=== PATIENT | female | born 1980 | race Caucasian/White ===

== ENCOUNTER 2018-05-21 09:39 | Emergency (ER) | payer OTHER ==
[2018-05-21 10:06] VITALS: BP 114/69; PULSE 78; TEMP 98.5; BMI 33.3
[2018-05-21] MEDS ORDERED: IBUPROFEN 600 MG TABLET (FP) PO ONE ×2 (11:02→11:04)
--- NOTE | 2018-05-21 11:07 | PDOC ---
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 Pt is right hand dominant. no fever no chills no pmhx. Past History - Past Medical History Allergies/Adverse Reactions: Allergies Allergy/AdvReac Type Severity Reaction Status Date / Time No Known Allergies Allergy Verified 05/21/18 10:02 Home Medications: Ambulatory Orders Ibuprofen 600 mg PO TID PRN #20 tablet 05/21/18 COPD: No - Suicide/Smoking/Psychosocial Hx Smoking History: Never smoked Hx Alcohol Use: No Drug/Substance Use Hx: No Review of Systems - Review of Systems Able to Perform ROS?: Yes Is the patient limited Korean proficient: No Constitutional: No: Symptoms Reported HEENTM: No: Symptoms Reported Respiratory: No: Symptoms reported Cardiac (ROS): No: Symptoms Reported ABD/GI: No: Symptoms Reported : No: Symptoms Reported Musculoskeletal: Yes: Symptoms Reported *Physical Exam - Vital Signs Last Vital Signs Temp Pulse Resp BP Pulse Ox 98.5 F 78 18 114/69 99 05/21/18 10:02 05/21/18 10:02 05/21/18 10:02 05/21/18 10:02 05/21/18 10:02 - Physical Exam General Appearance: Yes: Nourished, Appropriately Dressed HEENT: positive: EOMI, MADYSON Neck: negative: Tender, Decreased range of motion, Tender lateral Respiratory/Chest: positive: Lungs Clear, Normal Breath Sounds Cardiovascular: positive: Regular Rhythm, Regular Rate Extremity: positive: Normal Capillary Refill, Normal Inspection, Swelling ( fingers mildly swollen , nv intact FROM however pain with full extension of the fingers , ttp at the wrist crease, positive phalen sign ) Integumentary: positive: Normal Color, Dry, Warm Neurologic: positive: Fully Oriented, Alert, Normal Mood/Affect, Normal Response , Motor Strength 5/5 ED Treatment Course - RADIOLOGY Radiology Studies Ordered: Category Date Time Status WRIST W/HAND-LEFT* [RAD] Stat Radiology 11/02/18 11:02 Ordered Medical Decision Making - Medical Decision Making 05/21/18 11:04 cc: left wrist pain/hand, fingers for 3 days worse at night,. 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 all questions asked and answered. *DC/Admit/Observation/Transfer Diagnosis at time of Disposition: Carpal tunnel syndrome of left wrist - Discharge Dispostion Disposition: HOME Condition at time of disposition: Good - Prescriptions Prescriptions: Ibuprofen 600 mg PO TID PRN #20 tablet PRN Reason: pain - Referrals Referrals: Germán Rodriguez MD [Primary Care Provider] - Mulugeta Antunez DO [Staff Physician] - - Patient Instructions Printed Discharge Instructions: DI for Carpal Tunnel Syndrome Additional Instructions: follow with the orthopedist call today to set up appointment for next week use the splint at all times except to bathe wear at nigh time take ibuprofen (over the counter advil, motrin or ibuprofen) as directed for pain - Post Discharge Activity
== END 2018-05-21 11:31 | disposition home or self-care (01) ==
LOC: JERFT 09:39 → JER 09:39 → JERFT 11:31
DX: G56.02 Carpal tunnel syndrome, left upper limb (principal)
CPT/HCPCS: 73110-TC-LR-FY; 73130-TC-LR-FY; 99281-25

== ENCOUNTER 2018-12-11 15:55 | Emergency (ER) | payer OTHER | END 2018-12-11 16:58 | disposition home or self-care (01) | LOC: JERFT 15:55 ==

== ENCOUNTER 2019-02-07 12:34 | Emergency (ER) | payer OTHER ==
--- NOTE | 2019-02-07 12:38 | PDOC ---
Rapid Medical Evaluation Medical Evaluation: Allergies Allergy/AdvReac Type Severity Reaction Status Date / Time No Known Allergies Allergy Verified 12/11/18 16:50 02/07/19 12:37 I have performed a brief in-person evaluation of this patient. The patient presents with a chief complaint of: atraumatic right wrist pain Pertinent physical exam findings: No deformity. Full passive ROM. I have ordered the following: xray, motrin The patient will proceed to the ED for further evaluation. Discharge Disposition - Diagnosis Wrist pain, right - Referrals - Patient Instructions - Post Discharge Activity
[2019-02-07 12:42] VITALS: BP 121/86; PULSE 80; TEMP 98.1; BMI 32.5
--- NOTE | 2019-02-07 13:26 | PDOC ---
History of Present Illness - General Chief Complaint: Pain, Acute Stated Complaint: PAIN TO RT WRIST Time Seen by Provider: 02/07/19 12:39 - History of Present Illness Initial Comments: 02/07/19 13:21 38-year-old female without comorbidities presents for evaluation of atraumatic right wrist pain times one day Past History - Past Medical History Allergies/Adverse Reactions: Allergies Allergy/AdvReac Type Severity Reaction Status Date / Time No Known Allergies Allergy Verified 02/07/19 12:38 Home Medications: Ambulatory Orders NK [No Known Home Medication] 12/11/18 COPD: No - Immunization History Immunization Up to Date: Yes - Suicide/Smoking/Psychosocial Hx Smoking History: Never smoked Have you smoked in the past 12 months: No Hx Alcohol Use: No Drug/Substance Use Hx: No Review of Systems - Review of Systems Constitutional: No: Fever Musculoskeletal: Yes: Joint Pain *Physical Exam - Vital Signs Last Vital Signs Temp Pulse Resp BP Pulse Ox 98.1 F 80 18 121/86 100 02/07/19 12:40 02/07/19 12:40 02/07/19 12:40 02/07/19 12:40 02/07/19 12:40 - Physical Exam Comments: 02/07/19 13:22 Right wrist skin color and temperature are normal. Range of motion is full and nonpainful. Only area tenderness about the ulnar aspect of the wrist. No other areas of tenderness no gross sensory motor deficits normal elbow examination and shoulder examination nor vascular intact Medical Decision Making - Medical Decision Making 02/07/19 13:22 Left wrist pain times one day without trauma most likely an overuse type syndrome discussed use of Tylenol Motrin follow-up with orthopedic *DC/Admit/Observation/Transfer Diagnosis at time of Disposition: Wrist pain, right, Tendinitis of left wrist - Discharge Dispostion Disposition: HOME Condition at time of disposition: Stable Decision to Admit order: No - Referrals Referrals: Ramirez Fair MD [Staff Physician] - - Patient Instructions Additional Instructions: Follow-up with hand surgery in 1-2 days without fail. Tylenol Motrin as directed for pain. Return to the emergency room for worsening symptoms. - Post Discharge Activity
--- NOTE | 2019-02-09 18:42 | PDOC ---
*Physical Exam - Vital Signs Last Vital Signs Temp Pulse Resp BP Pulse Ox 98.1 F 80 18 121/86 100 02/07/19 12:40 02/07/19 12:40 02/07/19 12:40 02/07/19 12:40 02/07/19 12:40 *DC/Admit/Observation/Transfer Diagnosis at time of Disposition: Wrist pain, right, Tendinitis of left wrist - Discharge Dispostion Disposition: HOME Condition at time of disposition: Stable - Referrals Referrals: Ramirez Fair MD [Staff Physician] - - Patient Instructions Additional Instructions: Follow-up with hand surgery in 1-2 days without fail. Tylenol Motrin as directed for pain. Return to the emergency room for worsening symptoms. - Post Discharge Activity Forms/Work/School Notes: Back to Work
== END 2019-02-07 13:34 | disposition home or self-care (01) ==
LOC: JERFT 12:34
DX: M25.531 Pain in right wrist (principal); M77.9 Enthesopathy, unspecified
CPT/HCPCS: 73110-TC-RT-FY; 73130-TC-RT-FY; 99282-25

== ENCOUNTER 2019-04-21 18:46 | Emergency (ER) | payer OTHER ==
--- NOTE | 2019-04-21 18:53 | PDOC ---
Rapid Medical Evaluation Chief Complaint: Pain, Acute Time Seen by Provider: 04/21/19 18:49 Medical Evaluation: Allergies Allergy/AdvReac Type Severity Reaction Status Date / Time No Known Allergies Allergy Verified 02/07/19 12:38 04/21/19 18:49 I have performed a brief in-person evaluation of this patient. The patient presents with a chief complaint of: neck pain after heavy bag of sugar fell onto neck ( was carrying on back and slipped) Pertinent physical exam findings: FROM to neck but palp spasm to bialt paravert muscles. Strong grasp. I have ordered the following: nothing The patient will proceed to the ED for further evaluation. Discharge Disposition - Diagnosis Neck pain - Discharge Dispostion Condition at time of disposition: Stable - Referrals - Patient Instructions - Post Discharge Activity
[2019-04-21 19:01] VITALS: BP 106/73; PULSE 63; TEMP 98.4; BMI 29.2
--- NOTE | 2019-04-21 19:07 | PDOC ---
History of Present Illness - General Chief Complaint: Pain, Acute Stated Complaint: NECK/BACK PAIN Time Seen by Provider: 04/21/19 18:49 History Source: Patient - History of Present Illness Initial Comments: 04/21/19 19:30 Chief complaint: Neck and back injury. Patient is a healthy 38-year-old female who states a large sugar bag fell on her causing pain to her neck and back. Patient fall down, no LOC. This happened about 3 4 hours ago. Patient is ambulatory. Patient has no numbness. GENERAL/CONSTITUTIONAL: No fever, weakness. dizziness HEAD, EYES, EARS, NOSE AND THROAT: No change in vision. No ear pain or discharge. No sore throat. CARDIOVASCULAR: No chest pain RESPIRATORY: No shortness of breath or cough GASTROINTESTINAL: No pain, nausea, vomiting, diarrhea or constipation GENITOURINARY: No dysuria MUSCULOSKELETAL: + neck or back pain SKIN: No rash NEUROLOGIC: No headache, vertigo, loss of consciousness, or loss of sensation. GENERAL: The patient is awake, alert, and fully oriented, in no acute distress. HEAD: Normal with no signs of trauma. EYES: Pupils equal, round and reactive to light, sclera anicteric, conjunctiva clear. ENT: pharynx: no erythema, no exudate, uvula midline NECK: supple, + paravertebral tenderness, no posterior spinal tenderness, good range of motion CHEST: clear, nontender, rr ABD: soft, nontender BACK: no spinal tenderness with mild diffuse tenderness EXTREMITIES: Normal range of motion, no edema. Left thumb with some discomfort , no swelling, full range of motion, no focal tenderness, neurovascular intact NEUROLOGICAL: Normal speech, normal gait. Cranial nerves II through XII grossly intact, no gross focal abnormalities SKIN: Warm, Dry Past History - Past Medical History Allergies/Adverse Reactions: Allergies Allergy/AdvReac Type Severity Reaction Status Date / Time No Known Allergies Allergy Verified 02/07/19 12:38 Home Medications: Ambulatory Orders Cyclobenzaprine HCl 5 mg PO DAILY #21 tablet 04/21/19 COPD: No - Immunization History Immunization Up to Date: Yes - Psycho Social/Smoking Cessation Hx Smoking History: Never smoked Have you smoked in the past 12 months: No Information on smoking cessation initiated: No Hx Alcohol Use: No Drug/Substance Use Hx: No *Physical Exam - Vital Signs Last Vital Signs Temp Pulse Resp BP Pulse Ox 98.4 F 63 16 106/73 98 04/21/19 18:52 04/21/19 18:52 04/21/19 18:52 04/21/19 18:52 04/21/19 18:52 Medical Decision Making - Medical Decision Making 04/21/19 19:32 Healthy 38-year-old female who had large bag of sugar fall on her neck and back. No LOC, patient is ambulatory with no neurological symptoms. Patient has some paravertebral pain and tenderness, some localized upper back pain but no spinal or rib tenderness. No indication for imaging. Patient will be given Motrin and low-dose Flexeril. Discussed issues, findings, results, applicable medications and treatments and follow-up. All these were understood and all questions were answered Discharge - Discharge Information Problems reviewed: Yes Clinical Impression/Diagnosis: Neck pain Condition: Stable Disposition: HOME - Admission No - Additional Discharge Information Prescriptions: Cyclobenzaprine HCl 5 mg PO DAILY #21 tablet Prescription Drug Monitoring Program (I-STOP) results: I-STOP not reviewed - Follow up/Referral Referrals: Germán Rodriguez MD [Primary Care Provider] - - Patient Discharge Instructions Additional Instructions: No heavy lifting or bending Apply ice to the area 20 minutes every 2 hours for the next 2 days Continue taking Motrin 600 mg every 6 hours for pain. You can also take the Flexeril 1 tablet 3 times a day to help relax the muscles Return to the nearest ER if numbness, weakness, severe pain, problems with urinating or having bowel movements. Follow-up with your doctor in 1 to 2 days - Post Discharge Activity
[2019-04-21] MEDS ORDERED: IBUPROFEN 600 MG TABLET (FP) PO ONE ×2 (19:14→19:16)
== END 2019-04-21 19:19 | disposition home or self-care (01) ==
LOC: JERFT 18:46
DX: M54.2 Cervicalgia (principal); W22.8XXA Striking against or struck by other objects, initial encounter; Y93.89 Activity, other specified; Y92.89 Other specified places as the place of occurrence of the external cause; Y99.8 Other external cause status
CPT/HCPCS: 99281-25

== ENCOUNTER 2020-04-30 11:51 | Emergency (ER) | payer SELFPAY ==
--- NOTE | 2020-04-30 12:09 | TELE ---
HPI Do you have fever,cough or shortness of breath?: No - General Reason For Visit: COVID 19 TEST Time Seen by Provider: 04/30/20 12:04 History Source: Patient Exam Limitations: No Limitations - History of Present Illness 04/30/20 12:08 HPI: 39-year-old woman denies medical history with telehealth encounter for COVID-19 testing. Patient states her daughter needs COVID-19 testing to return to school and as patient's daughter had questionable exposure she is requesting COVID-19 testing for herself. She denies symptoms at this time. CONSTITUTIONAL: Absent: fever, chills, diaphoresis, generalized weakness, malaise, loss of appetite HEENT: Absent: rhinorrhea, nasal congestion, throat pain, throat swelling, difficulty swallowing, mouth swelling, ear pain, eye pain, visual changes CARDIOVASCULAR: Absent: chest pain, loss of consciousness, palpitations, irregular heart rate, peripheral edema RESPIRATORY: Absent: cough, shortness of breath, dyspnea with exertion, orthopnea, wheezing, stridor, hemoptysis GASTROINTESTINAL: Absent: abdominal pain, abdominal distension, nausea, vomiting, diarrhea SKIN: Absent: rash, itching, pallor NEUROLOGIC: Absent: headache, focal weakness or paresthesias, dizziness, unsteady gait, seizure, mental status changes, bladder or bowel incontinence PSYCHIATRIC: Absent: anxiety, depression, suicidal or homicidal ideation, hallucinations. GENERAL: Well developed, well nourished. Awake and alert. No acute distress. HEENT: Normocephalic, atraumatic. PERRLA, EOMI. NECK: Supple. Full ROM. PULMONARY: No evidence of respiratory distress. EXTREMITIES: No cyanosis. SKIN: Warm and dry. Normal capillary refill. No rashes. No jaundice. NEUROLOGICAL: Alert, awake, appropriate. PSYCHIATRIC: Cooperative. Good eye contact. Appropriate mood and affect. Past History - Medical History Allergies/Adverse Reactions: Allergies Allergy/AdvReac Type Severity Reaction Status Date / Time No Known Allergies Allergy Verified 02/07/19 12:38 Home Medications: Ambulatory Orders Cyclobenzaprine HCl 5 mg PO DAILY #21 tablet 04/21/19 COPD: No - Immunization History Immunization Up to Date: Yes - Psycho-Social/Smoking History Smoking History: Never smoked Have you smoked in the past 12 months: No - Medical Decision Making 10/12/20 12:09 A/P: 39-year-old woman with telehealth encounter for COVID-19 testing Patient reports she is asymptomatic. COVID-19 testing ordered Patient counseled for COVID-19. Discharge Portions of this note have been documented using voice recognition software. As a result, errors may occur in the private branch exchange service adviser process. Effort has been made to correct all grammatical and private branch exchange service adviser error, but some may have been missed which may produce sporadic inaccurate private branch exchange service adviser or nonsensical phrases. Discharge Diagnosis at time of Disposition: Counseled about COVID-19 virus infection - Referrals Follow-up Referral(s): Germán Rodriguez MD [Primary Care Provider] - - Patient Instructions Additional Discharge Instructions: You were tested for COVID today. Please isolate yourself until your test results come back. Guidance has been provided in your discharge papers You should receive a call within 24 to 48 hours from our department with your results. Thank you for using our telehealth service today! - Discharge Disposition: HOME Condition at time of Disposition: Stable
--- OUTSIDE RECORDS SUMMARY | 2020-04-30 12:14 | XMS ---
:1980 Author Organization [facility] Support Name Relationship Address Phone AMIRA [employer] [place] [address] [address] [place] [address] [employer] Unavailable Unavailable Unavailable CHARO, JULIO [address] [place] [address] Re-disclosure Warning The records that you are about to access may contain information from federally- assisted alcohol or drug abuse programs. If such information is present, then the following federally mandated warning applies: This information has been disclosed to you from records protected by federal confidentiality rules (42 CFR part 2). The federal rules prohibit you from making any further disclosure of this information unless further disclosure is expressly permitted by the written consent of the person to whom it pertains or as otherwise permitted by 42 CFR part 2. A general authorization for the release of medical or other information is NOT sufficient for this purpose. The Federal rules restrict any use of the information to criminally investigate or prosecute any alcohol or drug abuse patient.The records that you are about to access may contain highly sensitive health information, the redisclosure of which is protected by Article 27-F of the [facility] Public Health law. If you continue you may haveaccess to information: Regarding HIV / AIDS; Provided by facilities licensed or operated by the [facility] Office of Mental Health; or Provided by the [facility] Office for People With Developmental Disabilities. If such information is present, then the following [facility] mandated warning applies: This information has been disclosed to you from confidential records which are protected by state law. State law prohibits you from making any further disclosure of this information without the specific written consent of the person to whom it pertains, or as otherwise permitted by law. Any unauthorized further disclosure in violation of state law may result in a fine or custodial sentence or both. A general authorization for the release of medical or other information is NOT sufficient authorization for further disclosure. Insurance Providers Payer name Policy type Policy ID Covered Covered republican's Policy P gaurang / Coverage republican ID relationship to Morales Inf ormation type morales [facility] [id number] [facility] NON CAP
== END 2020-04-30 12:09 | disposition home or self-care (01) ==
LOC: JVIRT 11:51 → EDBD 11:51 → JVIRT 12:09
DX: Z03.818 Encounter for observation for suspected exposure to other biological agents ruled out (principal)
CPT/HCPCS: C9803; Q3014-GT; U0003

== ENCOUNTER 2021-01-22 07:32 | Emergency (ER) | payer OTHER ==
[2021-01-22 07:50] VITALS: BP 121/82; PULSE 72; TEMP 97; BMI 34.7
[2021-01-22] MEDS ORDERED: IBUPROFEN 600 MG TABLET (FP) PO ONE ×2 (07:58→08:32)
== END 2021-01-22 10:07 | disposition home or self-care (01) ==
LOC: JER 07:32 → JERFT 07:32
DX: G56.02 Carpal tunnel syndrome, left upper limb (principal)
CPT/HCPCS: 73110-TC-LT-FY; 73130-TC-LT-FY; 99283-25

== ENCOUNTER 2021-03-23 20:00 | Emergency (ER) | payer OTHER ==
[2021-03-23 20:09] VITALS: BP 107/74; PULSE 96; TEMP 98.2; BMI 35.5
== END 2021-03-23 21:06 | disposition home or self-care (01) ==
LOC: JER 20:00
PROC: 0Y9M3ZZ Drainage of Right Foot, Percutaneous Approach (ICD-10-PCS; principal; 2021-03-23)
DX: L03.031 Cellulitis of right toe (principal)
CPT/HCPCS: 99282-25

== ENCOUNTER 2022-01-14 13:13 | Emergency (ER) | payer OTHER ==
[2022-01-14 13:45] VITALS: BP 115/81; PULSE 93; TEMP 98.6; BMI 28.0
[2022-01-14] MEDS ORDERED: KETOROLAC TROMETHAMINE 30 MG/1 ML VIAL IM ONE (15:17)
[2022-01-14] MEDS ORDERED: KETOROLAC TROMETHAMINE 30 MG/1 ML VIAL ONE (15:18)
== END 2022-01-14 15:54 | disposition home or self-care (01) ==
LOC: JERFT 13:13 → JER 13:13 → JERFT 15:54
PROC: 3E0233Z Introduction of Anti-inflammatory into Muscle, Percutaneous Approach (ICD-10-PCS; principal; 2022-01-14)
DX: S46.819A Strain of other muscles, fascia and tendons at shoulder and upper arm level, unspecified arm, initial encounter (principal); M25.531 Pain in right wrist; M25.532 Pain in left wrist; X50.3XXA Overexertion from repetitive movements, initial encounter
CPT/HCPCS: 96372; 99284-25

== ENCOUNTER 2022-04-26 19:18 | Emergency (ER) | payer OTHER ==
[2022-04-26 19:37] VITALS: BP 102/72; PULSE 85; RESP 19; BMI 30.8
[2022-04-26 19:53] VITALS: TEMP 97.9
[2022-04-26] MEDS ORDERED: LIDOCAINE 2%/EPINEPHRINE 1:100000 (50 ML MD VIAL) INF ONE (20:41)
[2022-04-26] MEDS ORDERED: LIDOCAINE 1%/EPI 1:100000 (20 ML MULTI DOSE VIAL) ONE (20:44)
== END 2022-04-26 21:42 | disposition home or self-care (01) ==
LOC: JER 19:18
PROC: 0H95XZZ Drainage of Chest Skin, External Approach (ICD-10-PCS; principal; 2022-04-26)
DX: L02.213 Cutaneous abscess of chest wall (principal)
CPT/HCPCS: 99282-25

== ENCOUNTER 2023-02-28 18:09 | Emergency (ER) | payer OTHER ==
[2023-02-28 18:14] VITALS: BP 98/62; PULSE 90; RESP 18; TEMP 98.7; BMI 32.5
[2023-02-28] MEDS ORDERED: SULFAMETHOXAZOLE/TRIMETHOPRIM 800MG/160MG D.S. TABLET PO ONE (20:43)
[2023-02-28] MEDS ORDERED: SULFAMETHOXAZOLE/TRIMETHOPRIM 800MG/160MG D.S. TABLET ONE (20:46)
== END 2023-02-28 20:52 | disposition home or self-care (01) ==
LOC: JERFT 18:09
PROC: 0H9KXZZ Drainage of Right Lower Leg Skin, External Approach (ICD-10-PCS; principal; 2023-02-28)
DX: L03.031 Cellulitis of right toe (principal); M79.674 Pain in right toe(s); M79.89 Other specified soft tissue disorders
CPT/HCPCS: 10060; 99283-25

== ENCOUNTER 2023-05-12 14:35 | Emergency (ER) | payer OTHER ==
[2023-05-12 14:46] VITALS: BP 144/89; PULSE 96; RESP 20; TEMP 98.2; BMI 34.1
[2023-05-12] MEDS ORDERED: IBUPROFEN 400 MG TABLET (FP) PO ONE ×2 (15:36→15:50)
[2023-05-12] MEDS ORDERED: ACETAMINOPHEN 500 MG TABLET (FP) PO ONE (15:36)
== END 2023-05-12 18:45 | disposition home or self-care (01) ==
LOC: JERFT 14:35
DX: J06.9 Acute upper respiratory infection, unspecified (principal); Z20.822 Contact with and (suspected) exposure to COVID-19
CPT/HCPCS: 0241U-QW; 99283-25

== ENCOUNTER 2024-05-25 14:26 | Emergency (ER) | payer OTHER ==
[2024-05-25 14:36] VITALS: BP 116/63; PULSE 88; RESP 18; TEMP 99.1; BMI 35.2
[2024-05-25] MEDS ORDERED: AZITHROMYCIN 500 MG TABLET ONE (15:54)
[2024-05-25] MEDS ORDERED: predniSONE 20 MG TABLET (UD) ONE (15:54)
[2024-05-25] MEDS: predniSONE 20 MG TABLET (UD) PO ONE (15:57)
[2024-05-25] MEDS: AZITHROMYCIN 500 MG TABLET PO STA (15:57)
== END 2024-05-25 16:03 | disposition home or self-care (01) ==
LOC: JERFT 14:26
DX: J01.90 Acute sinusitis, unspecified (principal); J06.9 Acute upper respiratory infection, unspecified; R09.89 Other specified symptoms and signs involving the circulatory and respiratory systems; Z20.822 Contact with and (suspected) exposure to COVID-19
CPT/HCPCS: 0241U-QW; 71046-TC-FY; 99284-25